=== PATIENT | female | born 1970 | race Caucasian/White ===

== ENCOUNTER 2021-04-26 08:23 | Day surgery (SDC) | payer SELFPAY ==
[~2021-04-26] VITALS: Ht 172.7 cm; Wt 83.7 kg
[~2021-04-26 08:23] MED LIST: AMIT-189 PO; BUPIVAcaine 0.5% inj/PF 30 ML ONE; LIDOcaine 1% 30ml preserv. free vial ONE; METF-900 PO; ROSU10TA2 PO; cefazolin/dext.iso 2gm/50ml IV ONE; famotidine 20mg tablet PO ONE; ringers solution, lacted 1,000 ML IV SCH
[2021-04-26 08:55] VITALS: BP 119/79
[2021-04-26 10:20] LABS: BASOPHILS % (AUTO) 0.6 % (0-1); EOSINOPHILS # (AUTO) 0.1 X10'3 (0-0.9); LYMPHOCYTES # (AUTO) 1.5 X10'3 (1.1-4.8); LYMPHOCYTES % (AUTO) 23.9 % (21-51); MEAN CORPUSCULAR HEMOGLOBIN 26.9 PG (27.0-31.0); MEAN CORPUSCULAR HGB CONC 32.8 g/dL (33.0-36.5); MEAN CORPUSCULAR VOLUME 81.9 FL (78-98); MONOCYTES # (AUTO) 0.3 X10'3 (0-0.9); MONOCYTES % (AUTO) 5.4 % (2-12); NEUTROPHILS # (AUTO) 4.1 X10'3 (1.8-7.7); NEUTROPHILS % (AUTO) 68.1 % (42-75); PRE OP HEMATOCRIT 36.7 % (35.0-45.0); PRE OP PLATELET COUNT 312 X10'3 (140-440); RED BLOOD COUNT 4.48 X10'6 (4.20-5.60); RED CELL DISTRIBUTION WIDTH 16.9 % (11.5-14.5)
[2021-04-26 11:16] LABS: PREOP HCG, QL SERUM NEGATIVE (NEGATIVE)
[2021-04-26 11:34] LABS: ALANINE AMINOTRANSFERASE 23 U/L (12-78); ALBUMIN 4.1 G/DL (3.4-5.0); ALBUMIN/GLOBULIN RATIO 1.3 (1.1-1.5); ALKALINE PHOSPHATASE 97 IU/L (46-116); ANION GAP 12 (8-16); ASPARTATE AMINO TRANSFERASE 14 U/L (10-37); BILIRUBIN,TOTAL 0.2 MG/DL (0.1-1.0); BLOOD UREA NITROGEN 13 MG/DL (7-18); BUN/CREATININE RATIO 15.3 (6.6-38.0); CALCIUM 9.2 MG/DL (8.5-10.1); CHLORIDE 103 MMOL/L (99-107); CREATININE 0.85 MG/DL (0.40-0.90); GLUCOSE 93 MG/DL (70-104); POTASSIUM 4.1 MMOL/L (3.5-5.1); SODIUM 142 MMOL/L (135-145); TOTAL CARBON DIOXIDE 27.5 MMOL/L (24-32); TOTAL PROTEIN 7.3 G/DL (6.4-8.2); eGFR 71 ML/MIN
[2021-04-26] MEDS ORDERED: FENTANYL CITRATE/PF 50 MCG/1 ML VIAL ONE ×2 (12:35→12:59)
[2021-04-26] MEDS ORDERED: MIDAZolam 1 MG/ML 5ML VIAL ONE (12:35)
[2021-04-26] MEDS ORDERED: BUPIVAcaine 0.5% inj/PF 30 ml vial IJ ONE (12:56)
[2021-04-26] MEDS ORDERED: ketorolac trometh. 30mg/ml inj. ONE (12:56)
[2021-04-26] MEDS ORDERED: propofol inj 20 ML IV ONE (13:00)
[2021-04-26 13:18] VITALS: BP 131/83
--- NOTE | 2021-04-26 13:18 | NUR ---
Received from OR via , accompanied by Anesthesiologist DR HUANG and report given by Anesthesiolgist. AWAKENS TO VOICE. VITALS STABLE. DRESSING DI. OTTO PAIN.
[2021-04-26 13:28] VITALS: BP 122/89
[2021-04-26 13:38] VITALS: BP 121/77
[2021-04-26 13:48] VITALS: BP 134/84
[2021-04-26 14:08] VITALS: BP 129/62
--- NOTE | 2021-04-26 14:18 | NUR ---
AWAKE AND ORIENTED. VITALS STABLE. DRESSING DI. OTTO PAIN. HOME WITH HER SPOUSE AT THIS TIME.
== END 2021-04-26 14:18 | disposition home or self-care (01) ==
LOC: OR 08:23 → PAS 14:18
PROVIDERS: ATTEND Orthopaedic Surgery Hand Surgery
DX: S62.616A Displaced fracture of proximal phalanx of right little finger, initial encounter for closed fracture (principal); F32.A Depression, unspecified; Z88.2 Allergy status to sulfonamides; Z79.899 Other long term (current) drug therapy; Z79.84 Long term (current) use of oral hypoglycemic drugs; Z85.72 Personal history of non-Hodgkin lymphomas; Z98.890 Other specified postprocedural states; Z20.822 Contact with and (suspected) exposure to COVID-19; W19.XXXA Unspecified fall, initial encounter; Y93.89 Activity, other specified; Y92.89 Other specified places as the place of occurrence of the external cause; Y99.8 Other external cause status
CPT/HCPCS: 26746; 36415; 80053; 82948; 84703; 85025; 87635; 93005; A6222; C1713; C9803; J0690; J1885; J2250; J2704; J3010; J3490; J7030; J7120; S0020; Z7506; Z7512; A4215; A4618; A6449; A7000